=== PATIENT | male | born 1960 | race Caucasian/White ===

== ENCOUNTER 2018-01-04 17:44 | Emergency (ER) | payer SELFPAY ==
[~2018-01-04] VITALS: Ht 177.8 cm; Wt 61.7 kg
[2018-01-04 17:52] VITALS: BP 131/84
[2018-01-04] MEDS ORDERED: PROPARACAINE OPHTH 0.5%, 15ML ONE (18:08)
[2018-01-04] MEDS ORDERED: PROPARACAINE OPHTH 0.5%, 15ML EACHEYE ONE (18:30)
== END 2018-01-04 19:15 | disposition home or self-care (01) ==
LOC: ED 19:09
DX: S05.01XA Injury of conjunctiva and corneal abrasion without foreign body, right eye, initial encounter (principal); X58.XXXA Exposure to other specified factors, initial encounter; Y93.89 Activity, other specified; Y92.513 Shop (commercial) as the place of occurrence of the external cause; Y99.0 Civilian activity done for income or pay
CPT/HCPCS: 99283